=== PATIENT | female | born 1965 | race Caucasian/White ===

== ENCOUNTER 2017-05-15 19:42 | Emergency (ER) | payer SELFPAY ==
[~2017-05-15] VITALS: Ht 165.1 cm; Wt 70.9 kg
[~2017-05-15 19:42] MED LIST: ALBUAER2 INH; ASPI-391 PO; FLVHFA110 INH; IBUP-103 PO
[2017-05-15 19:46] VITALS: TEMP 36.5; Ht 165.1 cm; Wt 70.9 kg
[2017-05-15] MEDS ORDERED: PRED20TA PO (20:07)
[2017-05-15] MEDS ORDERED: CYCL10TA6 PO (20:07)
--- NOTE | 2017-05-15 20:09 | EMERGENCY ROOM VISIT NOTE ---
ED Visit Note First contact with patient: 19:55 CHIEF COMPLAINT: Low back pain HISTORY OF PRESENT ILLNESS: This 51-year-old female patient presents to the emergency department, ambulatory, complaining of pain in the low back and hip which is chronic. The patient states she has been experiencing chronic left and right lower back pain radiating into both hips for at least 5-6 years. 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 The patient states normally the pain is manageable with Advil and heat, but once or twice a year, she needs stronger medications. She states proximally 2 months ago, she was seen here for worsening pain, which seemed to be associated with lifting wrong and working more. She states recently, she is working more often, but does not recall any specific injury. She states the back pain began flaring up over the past week. She is having difficulty sleeping, and has been sleeping in a chair. The patient states she is having pain next to the spine, but not in the spine, which radiates into the left hip from the left paraspinous muscles. She describes the pain as achy, and worse than her normal pain, and does radiate into the buttock. The patient states the pain is worse at rest and while in bed than it is during the day when she is moving. The patient notes the pain as achy and a 8/10 now, but 9/10 while sleeping. The patient has taken 600 mg Advil every 4-6 hours as well as Tylenol intermittently. She states she normally tries to mix these medications so that her body does not use to one of them over the other. She has not received significant relief of the pain. The patient denies any loss of control of their bowel or bladder functions. There has been no leg numbness or weakness, and no change in sensation. No nausea or vomiting or abdominal pain. No chest pain or shortness of breath. The patient has not had specific prior back injuries, but states she simply has chronic low back pain. No dysuria or increased urinary frequency. The patient does not have a PCP due to being self-pay. REVIEW OF SYSTEMS: A review of systems was performed with positives and pertinent negatives listed in the history of present illness. All other systems were reviewed and are negative. ALLERGIES: None MEDICATIONS: None PMH: Asthma, bronchitis SOCIAL HISTORY: The patient lives locally with her family. She cleans houses for living. She denies drug, alcohol use. The patient admits to smoking approximately one quarter pack of cigarettes per day. PHYSICAL EXAM: VITALS: Vitals are noted on the nurse's note and reviewed by myself. Vital signs stable. GENERAL: This is a 51-year-old white female, in no acute distress, nondiaphoretic, well-developed well-nourished. SKIN: The skin was without rashes, erythema, edema, or bruising. Capillary refill less than 2 seconds. NECK: Supple without nuchal rigidity. No cervical spine tenderness. No paraspinous muscle tenderness. HEART: Regular rate and rhythm without murmurs gallops or rubs. LUNGS: Clear to auscultation bilaterally without wheezes, rales or rhonchi. ABDOMEN: Positive bowel sounds x 4. Normal tympanic percussion. Soft, nontender, without masses or organomegaly. Hutson sign negative. MUSCULOSKELETAL: No muscle atrophy, erythema, or edema noted of the back. There is no tenderness over the lumbar spinous processes. There is moderate tenderness over the paraspinous muscles bilaterally. There is no tenderness over the thoracic spine or paraspinous muscles. There are moderate muscle spasms present. The patient is slow to move around with maximum tenderness with position changes. Negative straight leg raise test. NEURO: Patient was alert and oriented to person place and time. Normal sensation to light and sharp touch. Deep tendon reflexes 2+ in the lower extremities. Dorsalis pedis pulse 2+ bilaterally. Strength 5/5 and equal in the bilateral lower extremities. EMERGENCY DEPARTMENT COURSE: She was seen and evaluated as above. She presents today with flareup of her chronic low back pain. She does not have any recent injury or illness which could be causing her low back pain. The patient states this is typical every few months where she needs stronger pain medication. I discussed with the patient options including steroids, muscle relaxers, and advised her that I do not recommend narcotic pain medication for chronic pain. I offered the patient a Decadron injection, and she declines, so I discussed with her that I can give her a prescription for prednisone to be taken starting tomorrow. The patient was given Flexeril to help with muscle spasms. Discharge instructions were reviewed, and she was encouraged to follow up outpatient with a PCP and look into physical therapy. The patient was discharged home in good condition. Blood Pressure Screening: Patient was found to have a slightly elevated blood pressure due to circumstances. I do not believe that the patient requires hypertension monitoring. I attest that I have personally reviewed the patient's current medication list. DIFFERENTIAL DIAGNOSIS: Low back strain, chronic low back pain, sciatica, cauda equina syndrome, malignancy, and others DIAGNOSIS: Chronic low back pain Problem List Medical Problems: (1) Asthma Status: Chronic (2) Asthmatic bronchitis Status: Resolved Current/Historical Medications Scheduled Prednisone (Prednisone), 0 PO DAILY Scheduled PRN Albuterol (Ventolin Hfa), 2 PUFFS INH Q4H PRN for SOB/Wheezing Lpqnuiv-Fobeihccpwowj-Bzkbgzqz (Excedrin Extra Strength), 1 TAB PO Q6H PRN for Pain Cyclobenzaprine Hcl (Flexeril), 10 MG PO TID PRN for Muscle Spasms Ibuprofen Tab (Advil), 200-600 MG PO Q4H PRN for Pain Allergies Uncoded Allergies: SEASONAL (Allergy, Intermediate, COUGH,PROBLEMS WITH EYES, 11/15/14) Vital Signs Date Time Temp Pulse Resp B/P (MAP) Pulse Ox O2 Delivery O2 Flow Rate FiO2 05/15/17 20:19 76 18 155/74 98 05/15/17 19:46 36.5 74 18 156/96 98 Room Air Medications Administered Medications (Trade) Dose Ordered Sig/Jaya Route Start Time Stop Time Status Last Admin Dose Admin Cyclobenzaprine HCl (FLEXERIL 10MG Home Pack) 1 homepack UD ONCE PO 05/15/17 20:15 05/15/17 20:16 DC 05/15/17 20:17 1 HOMEPACK Departure Information Impression Primary Impression: Chronic low back pain Dispostion Home / Self-Care Condition GOOD Prescriptions Cyclobenzaprine Hcl (FLEXERIL) 10 Mg Tab 10 MG PO TID Y for Muscle Spasms, #12 TAB Prov: Letha Espinoza PA-C 05/15/17 Prednisone (Prednisone) 20 Mg Tab 0 PO DAILY, #18 TAB 3 DAILY FOR 3 DAYS, THEN 2 DAILY FOR 3 DAYS, THEN 1 DAILY FOR 3 DAYS. Prov: Letha Espinoza PA-C 05/15/17 Referrals No Doctor, Assigned (PCP) Patient Instructions ED Neck Back Pain General, Low Back Pain Self Care, [facility] Additional Instructions You have been treated in the Emergency Department for Back Pain. You have been prescribed Prednisone. This is a steroid which will help decrease your inflammation, redness, and itch. Take this medicine as prescribed. Take the ENTIRE 9 day course. It is best to take steroids early in the morning as PM dosing can affect your sleeping patterns. You have been prescribed Flexeril (cyclobenzaprine) 1 tab orally, three times per day as needed for muscle spasms. Do NOT exceed 30 mg (3 tabs) per day. Take your first dose at bedtime as it can make you drowsy. Do not take this medication and drive. Always take all medications as prescribed. For pain control, you can use the following [id number] medicines (if >12 yo): Ibuprofen(Motrin, Advil) may be used for fever or pain. Use 600mg every six hours as needed. Take with food. Avoid using more than 2400mg in a 24 hour period. Do not use 2400mg per day for more than three consecutive days without physician direction. Prolonged inappropriate use can lead to stomach upset or ulcers. (AND/OR) Acetaminophen(Tylenol) may be used for fever or pain. Use 1000mg every six hours as needed. Avoid using more than 3000mg in a 24 hour period. If this is an acute injury, ice can be applied to the area of pain for the first 3 days to help decrease pain and inflammation. After the first 3 days, a heating pad can be used over the area for continued soothing relief. You should schedule a follow-up appointment in 2-3 days with your Primary Care Provider for further evaluation and treatment of your back pain. Return to the Emergency Department if your current symptoms worsen despite treatment course outlined above, or if you develop any of the following symptoms : intractable pain despite aforementioned treatment course, loss of control of your bowel or bladder, numbness or tingling in your groin, or development of a fever. Problem Qualifiers Primary Impression: Chronic low back pain Back pain laterality: left Sciatica presence: without sciatica Qualified Codes: M54.5 - Low back pain; G89.29 - Other chronic pain
[2017-05-15] MEDS ORDERED: PRVHFAIN INH (20:14)
[2017-05-15] MEDS ORDERED: FLEXERIL HOME PACK 10 MG VIAL PO ONE (20:15)
[2017-05-15 20:19] VITALS: BP 155/74; PULSE 76; O2SAT 98
== END 2017-05-15 20:20 | disposition home or self-care (01) ==
LOC: C.EDB 19:43 → C.EDD 20:20
DX: M54.5 Low back pain (principal); G89.29 Other chronic pain; J45.909 Unspecified asthma, uncomplicated; F17.210 Nicotine dependence, cigarettes, uncomplicated

== ENCOUNTER 2018-02-13 09:33 | Emergency (ER) | payer OTHER ==
[~2018-02-13] VITALS: Ht 167.6 cm; Wt 79.8 kg
[~2018-02-13 09:33] MED LIST changes: -ALBUAER2 INH; -FLVHFA110 INH; +OXYC-57 PO; +PRVHFAIN INH
[2018-02-13 09:42] VITALS: TEMP 36.7; Ht 167.6 cm; Wt 79.8 kg
--- NOTE | 2018-02-13 10:55 | DIAGNOSTIC IMAGING REPORT ---
LEFT THUMB 3 VIEWS CLINICAL HISTORY: Left thumb pain status post trauma COMPARISON: None. DISCUSSION: No acute fractures or dislocations are visualized. There is periarticular osteopenia at the level of the interphalangeal joint. There is sclerosis involving the tuft of distal phalanx likely chronic. There are osteoarthritic changes at the level the first carpal metacarpal joint. There is a nonspecific lucency at the base of the distal phalanx, possibly representing a degenerative subchondral cyst. IMPRESSION: No acute fractures or dislocations identified. Electronically signed by: Zeferino Johnson M.D. 02/13/2018 10:54 AM Dictated Date/Time: 02/13/2018 10:51 AM
[2018-02-13] MEDS ORDERED: METH4PAK PO (11:24)
[2018-02-13] MEDS ORDERED: OXYC-57 PO (11:25)
[2018-02-13 11:30] VITALS: BP 129/84; PULSE 74; O2SAT 99
--- NOTE | 2018-02-13 11:36 | EMERGENCY ROOM VISIT NOTE ---
History First contact with patient: 09:50 Chief Complaint: FACIAL PAIN/INJURY Stated Complaint: PAIN IN BACK,HIPS,THUMB ETC DUE TO FALL History of Present Illness The patient is a 52 year old female who presents to the Emergency Room with complaints of persistent low back pain and numbness in all her extremities since she fell on December 01. She also admits to left thumb pain. The patient is mainly here for pain control. The patient was seen here initially and had multiple x-rays of her cervical spine, lumbar spine, pelvis, femur which were all negative. She followed up with her family doctor in [place] and also with Dr. Hernandez. She had MRIs of her cervical thoracic and lumbar spines. did not feel that she required surgery. He also felt that she would benefit from pain management and therefore she is waiting for a call for pain management at [facility]. The patient states that she has been taking ibuprofen without any relief of her pain. The patient states that she had Percocet initially which did help with the pain. The patient denies any loss of bowel or bladder control or any saddle anesthesia. Review of Systems 10 system review was performed and was negative unless stated otherwise history of present illness. Past Medical/Surgical History Medical Problems: (1) Asthma (2) Asthmatic bronchitis Surgical Problems: (1) History of appendectomy Family History No significant family history Social History Smoking Status: Current Every Day Smoker Alcohol Use: none Drug Use: none Marital Status: Housing Status: lives with friends Occupation Status: employed Current/Historical Medications Scheduled Methylprednisolone (Medrol Dosepak), 0 PO DAILY Scheduled PRN Albuterol (Ventolin Hfa), 2 PUFFS INH Q4H PRN for SOB/Wheezing Oxycodone/Acetaminophen 5MG/325MG (Percocet 5MG/325MG), 1-2 TABS PO Q6 PRN for Pain Physical Exam Vital Signs Date Time Temp Pulse Resp B/P (MAP) Pulse Ox O2 Delivery O2 Flow Rate FiO2 02/13/18 09:42 36.7 84 16 122/86 99 Room Air Physical Exam GENERAL: 52-year-old white female appears in no acute distress. MENTAL Status: Alert and oriented 3. NECK: Supple, no lymphadenopathy noted. No carotid bruits noted. LUNGS: Clear auscultation without wheezes rales or rhonchi. CARDIAC: Regular rate and rhythm without murmur. Pulses is full and equal throughout. LUMBAR SPINE: No gross bony abnormality noted. Patient is tender to palpation over the lower spinous processes. She is tender to palpation over the paravertebral regions bilaterally. The patient has limited range of motion in all directions secondary to pain. Muscle strength is 5 out of 5 bilateral lower extremities and symmetrical. NEURO: Patient is able to heel and toe walk without difficulty. I lateral patellar and Achilles reflexes are 2+. Sensation is intact to pinprick bilateral lower extremities. Negative straight leg raise bilaterally. LEFT THUMB: No gross bony deformity noted. No erythema or edema noted. The patient has snapping of the tendon with extension of the thumb. She also has tenderness palpation over the thenar eminence. Medical Decision & Procedures ER Provider Diagnostic Interpretation: LEFT THUMB 3 VIEWS CLINICAL HISTORY: Left thumb pain status post trauma COMPARISON: None. DISCUSSION: No acute fractures or dislocations are visualized. There is periarticular osteopenia at the level of the interphalangeal joint. There is sclerosis involving the tuft of distal phalanx likely chronic. There are osteoarthritic changes at the level the first carpal metacarpal joint. There is a nonspecific lucency at the base of the distal phalanx, possibly representing a degenerative subchondral cyst. IMPRESSION: No acute fractures or dislocations identified. Electronically signed by: Zeferino Johnson M.D. 02/13/2018 10:54 AM ED Course The patient was evaluated. I did offer the patient a steroid injection but she does not like needles and therefore she would rather do oral steroids. X-ray of the left thumb was ordered interpreted by the radiologist as above without any acute findings. I discussed with the patient the treatment plan and she was in agreement. Medical Decision The patient is already seeking care for her back pain and neuropathy in all her extremities. She already had significant diagnostic workup. She is awaiting to be seen by the pain clinic. She is mainly here for pain control. She drove herself to the emergency room therefore she cannot given any narcotics while in the ER. The PD MP was accessed and she does not have any active narcotic scripts. I do not feel that it is unreasonable to give the patient some narcotics until she is seen by pain management. [place] Drug Monitoring Program Search Results: patient reviewed within database Medication Reconcilliation Current Medication List: was personally reviewed by me Blood Pressure Screening Patient's blood pressure: Normal blood pressure Impression Primary Impression: Lumbar back pain Additional Impression: Trigger finger of thumb Departure Information Dispostion Home / Self-Care Condition GOOD Prescriptions Oxycodone/Acetaminophen 5MG/325MG (PERCOCET 5MG/325MG) Tab 1-2 TABS PO Q6 Y for Pain, #24 TAB For Initial Treatment Prov: Nellie Ji PA-C 02/13/18 Methylprednisolone (MEDROL DOSEPAK) 4 Mg Trell 0 PO DAILY, #1 PKT Prov: Nellie Ji PA-C 02/13/18 Referrals Rosie Chandler PA-C (PCP) Forms HOME CARE DOCUMENTATION FORM, IMPORTANT VISIT INFORMATION Patient Instructions My [facility] Additional Instructions Keep scheduled appointment with pain management. Ibuprofen 600 mg every 6 hours with food for pain. Take Medrol Dosepak as prescribed. Take Percocet as needed for more severe pain. Do not drive while taking the Percocet. Follow- up with Dr. Trujillo for your thumb Problem Qualifiers Additional Impression: Trigger finger of thumb Laterality: left Qualified Codes: M65.312 - Trigger thumb, left thumb
== END 2018-02-13 11:48 | disposition home or self-care (01) ==
LOC: C.EDB 09:34
DX: M54.5 Low back pain (principal); M65.312 Trigger thumb, left thumb; G62.9 Polyneuropathy, unspecified; F17.200 Nicotine dependence, unspecified, uncomplicated